=== PATIENT | male | born 2000 | race Caucasian/White ===

== ENCOUNTER 2022-10-28 18:52 | Emergency (ER) | payer BC, SELFPAY ==
[2022-10-28 19:09] VITALS: BP 142/83; PULSE 92; RESP 20; TEMP 36.6; O2SAT 100
--- NOTE | 2022-10-28 19:17 | ED.GENADULT ---
HPI - General Adult General Chief complaint: Unspecified Stated complaint: Med Re-Fill Time Seen by Provider: 10/28/22 19:17 Source: patient Mode of arrival: ambulatory Limitations: no limitations History of Present Illness HPI narrative: 22-year-old male presents with mom for med refill. patient has been off his Zoloft for several months. Mom reports issue with insurance and his PCP left the office. She states that she now has him on State insurance and has appointment with a PCP November 21. Patient has a history of depression. Mom states that he has been going to work otherwise has been getting down on himself and not participating in any activities outside the home. Patient denies SI. He is alert and talkative. Laughing and smiling at times. States that he does feel better on his Zoloft. All systems reviewed and negative except as noted above. Related Data Home Medications Medication Instructions Recorded Confirmed sertraline 100 mg tablet 100 mg PO DAILY 10/28/22 10/28/22 Allergies Allergy/AdvReac Type Severity Reaction Status Date / Time No Known Allergies Allergy Unknown Unverified 02/01/19 16:06 Review of Systems Review of Systems: CONSTITUTIONAL: Denies fever, chills, or sweats. EYES: Denies visual changes, redness, or discharge. ENT: Denies rhinorrhea, congestion, sore throat, or otalgia. CARDIOVASCULAR: Denies chest pain, palpitations, or edema. RESPIRATORY: Denies cough or dyspnea. GASTROINTESTINAL: Denies abdominal pain, nausea, vomiting, or diarrhea. GENITOURINARY: Denies dysuria or hematuria. SKIN: Denies rash or itching. MUSCULOSKELETAL: Denies back pain, joint pain, or myalgia. NEUROLOGIC: Denies headache, numbness, or weakness. PSYCHIATRIC: Denies anxiety . Reports depression. All other systems reviewed are negative, except as documented in HPI. PMFSH Comments At time of signature, agree with nursing past medical, surgical, social and family history. There is no relevant family history pertinent to the presenting complaint. Exam Narrative: GENERAL: This is a well-nourished, well-developed patient, in no apparent distress. HEAD: normocephalic, atraumatic. EYES: PERRL. Sclera clear/white. Vision is grossly intact. EARS: External ears normal NOSE: External nose normal NECK: Neck supple, non-tender without lymphadenopathy, masses or thyromegaly. CARDIOVASCULAR: Regular rate and rhythm without murmurs, gallops, or rubs. RESPIRATORY: Clear to auscultation. Breath sounds equal bilaterally. No wheezes, rales, or rhonchi. SKIN: warm, Dry, intact with no suspicious lesions or rash, good texture and turgor. NEURO: awake, alert, and oriented to person, place and time. There were no obvious focal neurologic abnormalities. EXTREMITIES: No joint tenderness, effusion, or edema noted. Course Course Level of Care: Express Care Visit Vital Signs Vital signs: Vital Signs Temperature 36.6 C 10/28/22 19:09 Pulse Rate 92 10/28/22 19:09 Respiratory Rate 20 10/28/22 19:09 Blood Pressure 142/83 H 10/28/22 19:09 Pulse Oximetry 100 10/28/22 19:09 Oxygen Delivery Room Air 10/28/22 19:09 Temperature 36.6 C 10/28/22 19:09 Pulse Rate 92 10/28/22 19:09 Respiratory Rate 20 10/28/22 19:09 Blood Pressure 142/83 H 10/28/22 19:09 Pulse Oximetry 100 10/28/22 19:09 Oxygen Delivery Room Air 10/28/22 19:09 reviewed Medical Decision Making MDM Narrative Medical decision making narrative: Patient is aware of diagnosis, understands and agrees to treatment plan. Anticipatory guidance given. Patient agrees to follow-up as directed and is aware of reasons to seek care at the emergency department. Portions of this record may have been created with voice recognition software Vital Signs Vital Signs: Vital Signs Temperature 36.6 C 10/28/22 19:09 Pulse Rate 92 10/28/22 19:09 Respiratory Rate 10/28/22 19:09 Blood Pressure 142/83 H 10/28/22 19:09
== END 2022-10-28 19:35 | disposition home or self-care (01) ==
PROVIDERS: Emergency Provider Nurse Practitioner Family; PCP Physician Assistant
DX: F32.A Depression, unspecified (principal)
CPT/HCPCS: 99211; G0463